=== PATIENT | female | born 1975 | race Caucasian/White ===

== ENCOUNTER 2023-06-15 10:06 | Emergency (ER) | payer BC ==
[2023-06-15] MEDS ORDERED: Acetaminophen/HYDROcodone 325-10 MG Tab PO ONE (11:13)
[2023-06-15] MEDS ORDERED: Cyclobenzaprine 10 MG Tab PO ONE (11:48)
[2023-06-15] MEDS ORDERED: Take Home: Acetaminophen/oxyCODONE 325-5 MG, 5 Tab Pack PO ONE (11:48)
== END 2023-06-15 12:07 | disposition home or self-care (01) ==
LOC: DL.ED 10:06
DX: S39.012A Strain of muscle, fascia and tendon of lower back, initial encounter (principal); M62.830 Muscle spasm of back; Z79.899 Other long term (current) drug therapy; W18.2XXA Fall in (into) shower or empty bathtub, initial encounter
CPT/HCPCS: 71101; 72110; 99283; A9270